=== PATIENT | female | born 1950 | race Caucasian/White ===

== ENCOUNTER 2017-12-19 07:44 | Day surgery (SDC) | payer OTHER ==
[~2017-12-19 07:44] MED LIST: VERSED ONE
[2017-12-19] MEDS ORDERED: NS 500 ML IV 500 ML IV ONE (07:55)
[2017-12-19] MEDS ORDERED: TETRACAINE 0.5% OPHTH 1 DOSE AFFEYE ONE ×5 (08:15→11:08)
[2017-12-19] MEDS ORDERED: VIGAMOX 0.5% OPHTH 1 DOSE AFFEYE ONE ×3 (08:16→08:26)
[2017-12-19] MEDS ORDERED: PROLENSA OPHTH 1 DOSE AFFEYE ONE (08:28)
[2017-12-19] MEDS ORDERED: ALPHAGAN-P OPHTH 1 DOSE AFFEYE ONE (08:29)
[2017-12-19] MEDS ORDERED: AK-DILATE 2.5% OPHTH 1 DOSE OP ONE ×6 (08:30→08:35)
[2017-12-19] MEDS ORDERED: CYCLOGYL 1% OPHTH 1 DOSE OP ONE ×6 (08:30→08:35)
[2017-12-19] MEDS ORDERED: MYDRIACIL OPHTH 1 DOSE AFFEYE ONE ×6 (08:30→08:35)
[2017-12-19] MEDS ORDERED: VERSED IVP ONE (10:29)
[2017-12-19] MEDS ORDERED: VERSED ONE (10:35)
[2017-12-19] MEDS ORDERED: AK-DILATE 10% OPHTH 1 DOSE AFFEYE ONE (10:44)
[2017-12-19] MEDS ORDERED: BETADINE OPHTH SOLN 5% EACHEYE ONE (11:00)
[2017-12-19] MEDS ORDERED: DUOVISC IO ONE (11:12)
[2017-12-19] MEDS ORDERED: ADRENALINE CHL INJ IJ ONE (11:12)
[2017-12-19] MEDS ORDERED: XYLOCAINE-MPF 1% IJ ONE (11:12)
[2017-12-19] MEDS ORDERED: BSS OPHTH (PLAIN) 500 ML with VANCOMYCIN HCL 500 MG VIAL 25 MG, ADRENALINE CHL INJ 1 MG IR ONE ×3 (11:16)
[2017-12-19] MEDS ORDERED: VIGAMOX 0.5% AFFEYE ONE ×2 (11:16→11:26)
[2017-12-19 11:47] VITALS: BP 137/61
== END 2017-12-19 11:47 | disposition home or self-care (01) ==
LOC: SURG1 07:44
PROVIDERS: ATTEND Ophthalmology
PROC: 08RK3JZ Replacement of Left Lens with Synthetic Substitute, Percutaneous Approach (ICD-10-PCS; principal; 2017-12-19 10:30)
PROC: 08DK3ZZ Extraction of Left Lens, Percutaneous Approach (ICD-10-PCS; principal; 2017-12-19 10:30)
DX: H25.12 Age-related nuclear cataract, left eye (principal); H25.012 Cortical age-related cataract, left eye; H52.222 Regular astigmatism, left eye
CPT/HCPCS: A4217; J0170; J2250; J3370

== ENCOUNTER 2018-01-16 06:58 | Day surgery (SDC) | payer OTHER ==
[2018-01-16] MEDS ORDERED: TETRACAINE 0.5% OPHTH 1 DOSE AFFEYE ONE ×5 (07:13→09:22)
[2018-01-16] MEDS ORDERED: VIGAMOX 0.5% OPHTH 1 DOSE AFFEYE ONE ×5 (07:15→09:45)
[2018-01-16] MEDS ORDERED: BROMDAY OPHTH 1 DOSE AFFEYE ONE (07:26)
[2018-01-16] MEDS ORDERED: ALPHAGAN-P OPHTH 1 DOSE AFFEYE ONE (07:28)
[2018-01-16] MEDS ORDERED: AK-DILATE 2.5% OPHTH 1 DOSE OP ONE ×3 (07:30→07:35)
[2018-01-16] MEDS ORDERED: MYDRIACIL OPHTH 1 DOSE AFFEYE ONE ×3 (07:30→07:35)
[2018-01-16] MEDS ORDERED: CYCLOGYL 1% OPHTH 1 DOSE OP ONE ×3 (07:30→07:35)
[2018-01-16] MEDS ORDERED: NS 500 ML IV 500 ML IV ONE (07:30)
[2018-01-16] MEDS ORDERED: VERSED ONE ×2 (08:11→09:52)
[2018-01-16] MEDS ORDERED: FENTANYL INJ 100 mcg ONE (08:14)
[2018-01-16] MEDS ORDERED: AK-DILATE 10% OPHTH 1 DOSE AFFEYE ONE (09:20)
[2018-01-16] MEDS ORDERED: BETADINE OPHTH SOLN 5% EACHEYE ONE (09:22)
[2018-01-16] MEDS ORDERED: ADRENALINE CHL INJ IJ ONE (09:31)
[2018-01-16] MEDS ORDERED: BSS OPHTH (PLAIN) 500 ML with VANCOMYCIN HCL 500 MG VIAL 25 MG, ADRENALINE CHL INJ 1 MG IR ONE ×3 (09:31)
[2018-01-16] MEDS ORDERED: DUOVISC IO ONE (09:31)
[2018-01-16] MEDS ORDERED: XYLOCAINE-MPF 1% IJ ONE (09:31)
[2018-01-16 10:28] VITALS: BP 147/89
== END 2018-01-16 10:06 | disposition home or self-care (01) ==
LOC: SURG1 06:58
PROVIDERS: ATTEND Ophthalmology
PROC: 08DJ3ZZ Extraction of Right Lens, Percutaneous Approach (ICD-10-PCS; principal; 2018-01-16 08:15)
PROC: 08RJ3JZ Replacement of Right Lens with Synthetic Substitute, Percutaneous Approach (ICD-10-PCS; principal; 2018-01-16 08:15)
DX: H25.11 Age-related nuclear cataract, right eye (principal); H25.011 Cortical age-related cataract, right eye; H52.221 Regular astigmatism, right eye
CPT/HCPCS: A4217; J0170; J2250; J3010; J3370